=== PATIENT | male | born 2000 | race Caucasian/White ===

== ENCOUNTER → 2023-07-13 12:47 | Outpatient (CLI) | payer OTHER, SELFPAY ==
--- NOTE | ~2023-07-13 | CT_ITS ---
EXAMINATION: CT knee LT wo con DATE: 07/13/2023 13:30 INDICATION: Left knee pain TECHNIQUE: High resolution computed tomography (CT) of the left knee was performed without intravenou s contrast. Additional sagittal and coronal reconstructions were performed. Automated exposure contro l and iterative reconstruction technique were employed. The dose-length product was 221.68 mGy-cm. COMPARISON: None FINDINGS: Bone alignment is normal. Borderline increased tibial tubercle to trochlear groove distance of 18 mm . There is also borderline increased Insall Salvati ratio of 1.36. Joint spaces appear normal on nonw eightbearing imaging. Central subchondral osteophyte along the inferomedial aspect of the medial santana llar facet. Few tiny ossicles overlying and irregular cortical contour at the mid medial margin of th e medial patellar facet which could represent sequela of either an avulsion injury of the medial santana llofemoral retinaculum or impaction fracture related to a lateral patellar dislocation. There is stra nding in the subcutaneous fat along overlying the anteromedial aspect of the knee and proximal tibia. IMPRESSION: 1. Constellation of findings suggestive of patellar instability and prior lateral patellar dislocatio n with avulsion injury versus impaction fracture at the patellar insertion of the medial patellofemor al retinaculum. 2. Moderate-sized knee joint effusion. Reviewed, dictated and finalized at location A. IMPRESSION: 1. Constellation of findings suggestive of patellar instability and prior later al patellar dislocation with avulsion injury versus impaction fracture at the p atellar insertion of the medial patellofemoral retinaculum. 2. Moderate-sized knee joint effusion.
== END ==
DX: M25.562 Pain in left knee (principal); M25.462 Effusion, left knee
CPT/HCPCS: 73700

== ENCOUNTER 2023-10-16 07:30 | Outpatient (RCR) | payer OTHER, SELFPAY ==
--- NOTE | 2023-07-19 15:56 | PTOPEVAL1 ---
Assessment and note entered by Mikey Amato Evaluation Information Assessment Status Evaluation Diagnosis patellar dislocation, Onset 06/25/23 Subjective Information Pt. reports that he initially injured the knee around 06/25/23. He reports that he was messing around with a dawn and landed on the knee weird. Pt. reports that he felt an immediate pop in the left knee. He went to the doctor the next day and underwent MRI. He states that he was told by his doctor to avoid WB. 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 He is currently using crutches and states that he has attempted to put a little weight through the left leg, despite doctors reqeust for NWB. He states that his goal is to return to walking normal. He states that he will return to the doctor on 07/21/23 Reported Pain Level Pain Score 1: Self Report Assessment PT Clinical Summary Pt. is a 23 year old male who enters the clinic post patellar dislocation and MCL sprain on the left. He presents with edema, impaired ROM, impaired strength, impaired gait and pain. Continued skilled PT is indicated in order to improve these areas to allow the pt. to be able to complete all IADL's with improved comfort and efficiency. Plan of Care Interventions Electrical Stimulation,Gait Training,Hot Pack/Cold Pack,Intermittent Compression,Manual Therapy, Neuro Re-education,Patient/Caregiver Educati, Therapeutic Activities,Therapeutic Exercise PT Services Indicated Yes Treatment Frequency and 2x/week x 10 visits Duration These treatments will address the objective and functional deficits as defined above. The patient will be advanced safely and appropriately in order for the patient to progress towards his/her prior level of function. Additional exercises will be introduced and as well as a comprehensive home exercise program upon discharge, if needed, ?to ensure carryover of functional gains achieved in the clinic. This treatment plan has been reviewed and agreement upon by the patient.
--- NOTE | 2023-07-19 15:57 | OPREHPOC ---
Outpatient Therapy Plan of Care This is a Multidisciplinary Plan of Care that may contain components documented by all disciplines (PT, OT, and ST.) PT Problem 1 PT Problem #1 Knowledge Deficit PT Goal 1 Goal Pt. will be independent with a HEP addressing strength and mobility latter-day. Target Visit 2 PT Problem 2 PT Problem #2 Impaired Range of Motion PT Goal 1 Goal Pt. will achieve 0-130 degrees left knee AROM Target Visit 10 PT Problem 3 PT Problem #3 Edema PT Goal 1 Goal Pt. will present with 40-41cm girth measurement at the left knee joint line indicating improvement in edema. Target Visit 10 PT Problem 4 PT Problem #4 Impaired Gait PT Goal 1 Goal Pt. will ambulate without an AD with equal right and left stance time. Target Visit 10 PT Goal 2 Goal Pt. will navigate steps with a reciprocal pattern. Target Visit 10
--- NOTE | 2023-08-23 07:59 | PTOPEVAL1 ---
Assessment and note entered by Mikey Amato Evaluation Information Assessment Status Evaluation Diagnosis patellar dislocation, Onset 06/25/23 Subjective Information Pt. reports he underwent surgery last . He states that pain is currently a 2/10 when he is upright. he states that he has already returned to work. He reports that his goal for therapy is to regain normal left knee ROM and be able to return to walking normally. Reported Pain Level Pain Score 2: Self Report Assessment PT Clinical Summary Pt. enters the clinic 6 days post MCL repair with allograft. He is currently limited to TTWB on the left per protocol and max of 90 degrees passive knee flexion on the left. He is provided HEP instruction on this date with strengthening activities performed with the brace on. Pt educated regarding avoiding any hip adduction against gravity on the left to protect the graft. He currently presents with edema, impaired gait, impaired l.e. strength, pain and impaired left knee ROM. Continued skilled PT is indicated in order to improve these areas to allow the pt. to achieve his goal of normal mobility and gait. New post operative goals established on this date Plan of Care Interventions Electrical Stimulation,Gait Training,Hot Pack/Cold Pack,Intermittent Compression,Manual Therapy, Neuro Re-education,Patient/Caregiver Educati, Therapeutic Activities,Therapeutic Exercise PT Services Indicated Yes Treatment Frequency and 2x/week x 10 visits Duration These treatments will address the objective and functional deficits as defined above. The patient will be advanced safely and appropriately in order for the patient to progress towards his/her prior level of function. Additional exercises will be introduced and as well as a comprehensive home exercise program upon discharge, if needed, ?to ensure carryover of functional gains achieved in the clinic. This treatment plan has been reviewed and agreement upon by the patient.
--- NOTE | 2023-08-23 08:00 | OPREHPOC ---
Outpatient Therapy Plan of Care This is a Multidisciplinary Plan of Care that may contain components documented by all disciplines (PT, OT, and ST.) PT Problem 1 PT Problem #1 Knowledge Deficit PT Goal 1 Goal Pt. will be independent with a HEP addressing strength and mobility hinduism. Target Visit 2 PT Problem 2 PT Problem #2 Impaired Range of Motion PT Goal 1 Goal Pt. will achieve 0-90 degrees left knee PROM Target Visit 6 PT Goal 2 Goal Pt. will achieve 0-120 degrees left knee PROM Target Visit 10 PT Problem 3 PT Problem #3 Edema PT Goal 1 Goal Pt. will present with 42cm girth measurement at the left knee joint line indicating improvement in edema. Target Visit 10 PT Problem 4 PT Problem #4 Impaired Gait PT Goal 1 Goal Pt. will be appropriate to advance to WBAT on the left and discontinue use of axillary crutches Target Visit 10 PT Goal 2 Goal Pt. will navigate steps with a reciprocal pattern. Target Visit 10
--- NOTE | 2023-09-25 08:52 | PTOPEVAL1 ---
Assessment and note entered by Jaylen Moreno, PT Evaluation Information Assessment Status Progress Diagnosis patellar dislocation, Onset 06/25/23 Subjective Information Reports that he feels he is doing well. Has been limited secondary to protocol and feels comfortable going into his MD follow up. Pain has been minimal to none. Reported Pain Level Pain Score 0: Self Report Assessment PT Clinical Summary Patient has made excellent progress with knee ROM, hip strength, and edema reduction as expected. Progressing well and should transition into next stage of protocol without concern. Still lacking weight bearing ability, full functional knee ROM, and normalization of gait which should initiate training on 09/27/23. Plan of Care Interventions Electrical Stimulation,Gait Training,Hot Pack/Cold Pack,Intermittent Compression,Manual Therapy, Neuro Re-education,Patient/Caregiver Education, Therapeutic Activities,Therapeutic Exercise PT Services Indicated Yes Treatment Frequency and 2x/week 4 weeks Duration These treatments will address the objective and functional deficits as defined above. The patient will be advanced safely and appropriately in order for the patient to progress towards his/her prior level of function. Additional exercises will be introduced and as well as a comprehensive home exercise program upon discharge, if needed, ?to ensure carryover of functional gains achieved in the clinic. This treatment plan has been reviewed and agreement upon by the patient.
--- NOTE | 2023-09-25 08:52 | OPREHPOC ---
Outpatient Therapy Plan of Care This is a Multidisciplinary Plan of Care that may contain components documented by all disciplines (PT, OT, and ST.) PT Problem 1 PT Problem #1 Knowledge Deficit PT Goal 1 Goal Pt. will be independent with a HEP addressing strength and mobility hinduism. Target Visit 2 Progress Met PT Problem 2 PT Problem #2 Impaired Range of Motion PT Goal 1 Goal Pt. will achieve 0-90 degrees left knee PROM Target Visit 6 Progress Met PT Goal 2 Goal Pt. will achieve 0-120 degrees left knee PROM Target Visit 10 Progress Partially Met Comment Improving PT Problem 3 PT Problem #3 Edema PT Goal 1 Goal Pt. will present with 42cm girth measurement at the left knee joint line indicating improvement in edema. Target Visit 10 Progress Met PT Goal 2 Goal Improve L knee girth measures to 40.5 cm or less indicating joint and soft tissue haling Target Visit 16 PT Problem 4 PT Problem #4 Impaired Gait PT Goal 1 Goal Pt. will ambulate with full weight bearing L LE with even stride length bilaterally Target Visit 16 Comment Updated on 09/25/23 PT Goal 2 Goal Pt. will navigate steps with a reciprocal pattern. Target Visit 10 PT Problem 5 PT Problem #5 Impaired Strength PT Goal 1 Goal Improve L knee extension strength to 5/5 to improve stability in knee joint for functional return to motion Target Visit 16 PT Goal 2 Goal Demonstrate ability to perform 20# box lift with proper knee form for functional lifting return Target Visit 16
== END 2023-10-16 09:46 | disposition home or self-care (01) ==
LOC: ANHPT 07:30
DX: S83.412D Sprain of medial collateral ligament of left knee, subsequent encounter (principal); M25.562 Pain in left knee
CPT/HCPCS: 97014; 97110; 97112; 97140; 97161; 97530; 99199; G0283

== ENCOUNTER 2023-12-20 16:30 | Outpatient (RCR) | payer BC, OTHER, SELFPAY ==
--- NOTE | 2023-10-19 07:39 | PCPTNOTE ---
Carrying forward treatment from [id number]
--- NOTE | 2023-10-23 14:10 | PCPTNOTE ---
Patient was a No Show for today's Progress Note.
--- NOTE | 2023-11-02 15:02 | PTOPEVAL1 ---
Assessment and note entered by Mikey Amato Evaluation Information Assessment Status Progress Diagnosis s/p left knee arthroscopy, MCL repair Onset 08/17/23 Subjective Information Pt. reports that he still notes some stiffness with attempting to bend the left knee. He states that he returns to the doctor next week. He reports that he still has trouble with going down stairs and notes weakness, especially with descending steps. he reports that he has not returned to the gym and is not doing any aggressive activities. He reports that he would like to continue with skilled PT in order to continue to improve strength and to be able to transition back to the gym. Reported Pain Level Pain Score 1: Self Report Assessment PT Clinical Summary Mr. Miller has attended a total of 17 treatment sessions since having surgery. He has demonstrated excellent progress in regards to ROM and edema. Despite full hindu of mobility, quadriceps and hamstrings weakness persist at the left l.e. compared to the right. Pt. has been limited due to protecting the MCL repair, however is approaching the phase of rehab that can advance to more plyometric activities. Pt. was very active prior to surgery and expresses desire to return to the gym. At this time recommend continued skilled PT in order to continue to address left l.e. weakness through eccentric strengthening of the quads and HS mm. New goals established on this date to reflect pt. current rehab status. Plan of Care Interventions Electrical Stimulation,Gait Training,Intermittent Compression,Manual Therapy,Neuro Re-education, Therapeutic Activities,Therapeutic Exercise PT Services Indicated Yes Treatment Frequency and 1x/week x 6 visits focusing on eccentric Duration strengthening and transitioning into plyometric activities. These treatments will address the objective and functional deficits as defined above. The patient will be advanced safely and appropriately in order for the patient to progress towards his/her prior level of function. Additional exercises will be introduced and as well as a comprehensive home exercise program upon discharge, if needed, ?to ensure carryover of functional gains achieved in the clinic. This treatment plan has been reviewed and agreement upon by the patient.
--- NOTE | 2023-12-05 07:33 | PCPTNOTE ---
Patient cancelled secondary to car trouble.
--- NOTE | 2023-12-20 16:57 | PTOPPROGNS ---
Assessment and note entered by Mikey Amato Discharge Information Assessment Status Discharge Diagnosis s/p left knee arthroscopy, MCL repair Onset 08/17/23 Subjective Information Pt. denies pain on this date. He states that he has been cleared to jog. He reports that he is doing most everything he needs to do. He states that he would like to return to doing squats in the gym. Assessment PT Clinical Summary Pt. has met all goals established at the initial evaluation. He is encouraged to continue with his HEP and will be discharged from our care at this time. Plan of Care D/C from PT to an independent HEP. These treatments will address the objective and functional deficits as defined above. The patient will be advanced safely and appropriately in order for the patient to progress towards his/her prior level of function. Additional exercises will be introduced and as well as a comprehensive home exercise program upon discharge, if needed, ?to ensure carryover of functional gains achieved in the clinic. This treatment plan has been reviewed and agreement upon by the patient.
== END 2023-12-20 17:10 | disposition home or self-care (01) ==
LOC: ANHPT 16:30
DX: S83.412D Sprain of medial collateral ligament of left knee, subsequent encounter (principal); M25.562 Pain in left knee
CPT/HCPCS: 97110; 97112; 97530; 99199